=== PATIENT | male | born 2000 | race Caucasian/White ===

== ENCOUNTER → 2020-05-15 | Outpatient (CLI) | payer BC, OTHER ==
[2020-05-15 18:59] LABS: BASO % 0.4 % (0.0-1.0); EOS % 0.6 % (0.0-3.0); HEMATOCRIT 40.9 % (42.0-52.0); HEMOGLOBIN 14.1 g/dl (13.5-17.5); LYMPH % 39.8 % (24.0-44.0); MEAN CORPUSCULAR HEMOGLOBIN 31.6 pg (27.0-33.0); MEAN CORPUSCULAR HGB CONC 34.5 g/dl (32.0-36.5); MEAN CORPUSCULAR VOLUME 91.7 fl (80.0-96.0); MONO # 0.5 10^3/uL (0.0-0.8); MONO % 9.9 % (0.0-5.0); NEUTROPHILS # 2.5 10^3/uL (1.5-8.5); NEUTROPHILS % 49.1 % (36.0-66.0); PLATELET COUNT, AUTOMATED 174 10^3/uL (150-450); RED BLOOD COUNT 4.46 10^6/uL (4.30-6.10); WHITE BLOOD COUNT 5.1 10^3/uL (4.0-10.0)
[2020-05-15 19:32] LABS: ALBUMIN 4.5 GM/DL (3.2-5.2); ALT/SGPT 16 U/L (12-78); BILIRUBIN,TOTAL 0.5 MG/DL (0.2-1.0); BLOOD UREA NITROGEN 14 MG/DL (7-18); CALCIUM LEVEL 9.4 MG/DL (8.5-10.1); CARBON DIOXIDE LEVEL 29 MEQ/L (21-32); CHLORIDE LEVEL 104 MEQ/L (98-107); CHOLESTEROL LEVEL 159 MG/DL (<200); CHOLESTEROL RISK RATIO 3.244 (<5); CPK CREATINE PHOSPHOKINASE 152 U/L (39-308); CREATININE FOR GFR 0.81 MG/DL (0.70-1.30); GLUCOSE, FASTING 84 MG/DL (70-100); HDL CHOLESTEROL 49 MG/DL (>40); LDL CHOLESTEROL 97 MG/DL (<100); NON-HDL-C 110 MG/DL; POTASSIUM SERUM 4.3 MEQ/L (3.5-5.1); SODIUM LEVEL 140 MEQ/L (136-145); TOTAL PROTEIN 7.3 GM/DL (6.4-8.2); TRIGLYCERIDES LEVEL 64 MG/DL (<150)
--- NOTE | 2020-05-16 02:19 | REP ---
INDICATION: RIGHT KNEE PAIN, LAB 1ST EKG 2ND THEN XR COMPARISON: None. TECHNIQUE: AP, lateral, bilateral oblique and sunrise views. FINDINGS: The osseous structures and joint spaces are intact and normal. There is no evidence for acute fracture or dislocation. No joint effusion is appreciated. Surrounding soft tissues are unremarkable. No subcutaneous emphysema or radiodense foreign body. IMPRESSION: Normal examination. No acute fracture or dislocation. <Electronically signed by Joseph Early > 05/16/20 [id number]
--- NOTE | 2020-05-16 02:20 | REP ---
INDICATION: CHEST PAIN, LAB 1ST EKG 2ND THEN XR COMPARISON: None. TECHNIQUE: PA and lateral. FINDINGS: The mediastinum and cardiac silhouette are normal. The lung marti are clear and without acute consolidation, effusion, or pneumothorax. The skeletal structures are intact and normal. IMPRESSION: No acute cardiopulmonary process. <Electronically signed by Joseph Early > 05/16/20 [id number]
--- NOTE | 2020-05-16 12:35 | ECGEPIP ---
[facility] Test Date: 2020-05-15 Pat Name: NAUN GREENE Department: Room: - Gender: Male [employer]: RF : 2000 Requested By: Rakesh Contreras Order Number: [id number] Reading MD: Inderjit Villalta Measurements Intervals [place] Rate: 57 P: 68 KS: 108 QRS: 72 QRSD: 166 T: 65 QT: 440 QTc: 428 Interpretive Statements Sinus bradycardia Diffuse early repolarization Likely normal variant but could not rule out pericarditis Electronically Signed on 05-16-2020 12:34:59 EST by Inderjit Villalta
== END ==
LOC: M LAB 17:08
PROVIDERS: ATTEND Internal Medicine
DX: E03.9 Hypothyroidism, unspecified (principal)

== ENCOUNTER → 2020-05-27 | Outpatient (CLI) | payer BC, OTHER ==
--- NOTE | 2020-05-27 19:40 | REPVR ---
PROCEDURE INFORMATION: Exam: MR Lumbar Spine Without Contrast. Exam date and time: 05/27/2020 6:32 PM Age: 20 years old Clinical indication: Low back pain; Additional info: Other intervertebral disc displacement, lumbar region TECHNIQUE: Imaging protocol: Multiplanar magnetic resonance images of the lumbar spine without intravenous contrast. COMPARISON: No relevant prior studies available. FINDINGS: Vertebrae: Unremarkable. Spinal cord: Normal signal. No cord compression. L1-L2: No significant disc disease. No significant spinal canal stenosis. No neural foraminal stenosis. L2-L3: No significant disc disease. No significant spinal canal stenosis. No neural foraminal stenosis. L3-L4: No significant disc disease. No significant spinal canal stenosis. No neural foraminal stenosis. L4-L5: No significant disc disease. No significant spinal canal stenosis. No neural foraminal stenosis. L5-S1: Bulging annulus at L5-S1 with a central slightly inferiorly extruded disc herniation abutting the thecal sac without significant compression of the thecal sac and with minimal impingement on the medial surfaces of the S1 nerve roots as they exit from the thecal sac. Soft tissues: Unremarkable. IMPRESSION: 1. Bulging annulus and central disc protrusion L5-S1 with possible mild impingement on the S1 nerve roots as they exit the thecal sac. 2. Otherwise unremarkable. Electronically signed by: Sukhjinder Torres On 05/27/2020 19:41:03 PM
== END ==
LOC: M RAD 17:43
PROVIDERS: ATTEND Internal Medicine
DX: M51.26 Other intervertebral disc displacement, lumbar region (principal)